=== PATIENT | female | born 1995 | race Caucasian/White ===

== ENCOUNTER 2020-07-06 18:31 | Inpatient (IN) | payer BC ==
[~2020-07-06] VITALS: Ht 157.5 cm; Wt 68.9 kg
[2020-07-06 18:48] VITALS: Ht 157.5 cm; Wt 68.9 kg
[2020-07-06 19:46] LABS: PLATELET COUNT 294 x10^3mcL (130-400)
[2020-07-06 19:47] LABS: BASOPHIL % 0 % (0-2)
[2020-07-06 19:59] LABS: ALKALINE PHOSPHATASE 53 U/L (46-116); ALT/SGPT 85 U/L (14-59); AST/SGOT 36 U/L (15-37); BILIRUBIN TOTAL 0.68 mg/dL (0.20-1.00); CALCIUM 9.2 mg/dL (8.5-10.1); CARBON DIOXIDE 26.7 mmol/L (21-32); CHLORIDE SERUM 96 mmol/L (98-107); CREATININE SERUM 0.5 mg/dL (0.6-1.0); GFR1 > 60 mL/min; GLUCOSE SERUM 92 mg/dL (74-106); LIPASE 109 IU/L (73-393); SODIUM SERUM 134 mmol/L (136-145); TOTAL PROTEIN, SERUM 7.5 g/dL (6.4-8.2)
[2020-07-06 20:00] LABS: ALBUMIN 3.1 g/dL (3.4-5.0)
[2020-07-06 20:01] LABS: POTASSIUM SERUM 2.9 mmol/L (3.5-5.1)
[2020-07-06 23:11] LABS: microscopic required? YES; urine erythrocyte 1+ (NEGATIVE)
[2020-07-07 03:21] VITALS: BP 122/68
[2020-07-07 05:43] VITALS: BP 115/66
[2020-07-07 07:11] LABS: BASOPHIL % 0.2 % (0-2); PLATELET COUNT 237 x10^3mcL (130-400); RED CELL DISTRIBUTION WIDTH 13.1 % (11.5-14.5)
[2020-07-07 07:30] LABS: CALCIUM 7.7 mg/dL (8.5-10.1); CARBON DIOXIDE 27.7 mmol/L (21-32); CHLORIDE SERUM 103 mmol/L (98-107); CREATININE SERUM 0.4 mg/dL (0.6-1.0); GFR1 > 60 mL/min; GLUCOSE SERUM 87 mg/dL (74-106); MAGNESIUM 1.9 mg/dL (1.8-2.4); POTASSIUM SERUM 3.1 mmol/L (3.5-5.1); SODIUM SERUM 137 mmol/L (136-145)
[2020-07-07 08:36] VITALS: BP 112/61
[2020-07-07 12:23] VITALS: BP 112/64
[2020-07-07 17:03] VITALS: BP 132/88
[2020-07-07 21:41] VITALS: BP 127/68
[2020-07-08 06:35] VITALS: BP 138/71
[2020-07-08 07:01] LABS: BASOPHIL % 0.3 % (0-2); PLATELET COUNT 270 x10^3mcL (130-400); RED CELL DISTRIBUTION WIDTH 12.8 % (11.5-14.5)
[2020-07-08 07:07] LABS: CALCIUM 9.1 mg/dL (8.5-10.1); CARBON DIOXIDE 24.7 mmol/L (21-32); CHLORIDE SERUM 100 mmol/L (98-107); CREATININE SERUM 0.5 mg/dL (0.6-1.0); GFR1 > 60 mL/min; GLUCOSE SERUM 90 mg/dL (74-106); MAGNESIUM 2.1 mg/dL (1.8-2.4); PHOSPHOROUS 2.7 mg/dL (2.5-4.9); POTASSIUM SERUM 3.4 mmol/L (3.5-5.1); SODIUM SERUM 136 mmol/L (136-145)
[2020-07-08 09:03] VITALS: BP 116/66
[2020-07-08] MEDS ORDERED: KEFLEX500 M1 PO (09:16)
[2020-07-08] MEDS ORDERED: VINATE M1 TAB PO (09:17)
[2020-07-08] MEDS ORDERED: VITAMIN B-650 M1 PO (09:17)
[2020-07-08] MEDS ORDERED: ZOF4 PO (09:25)
[2020-07-08 09:50] VITALS: BP 116/66
== END 2020-07-08 10:46 | disposition home or self-care (01) | DRG 178 ==
LOC: ED 18:31 → DU 22:35
PROVIDERS: Emergency Medicine; ADMIT Internal Medicine; ATTEND Internal Medicine
DX: U07.1 COVID-19 (principal); O98.511 Other viral diseases complicating pregnancy, first trimester; O23.41 Unspecified infection of urinary tract in pregnancy, first trimester; E44.1 Mild protein-calorie malnutrition; E87.6 Hypokalemia; O25.11 Malnutrition in pregnancy, first trimester; O21.0 Mild hyperemesis gravidarum; O99.281 Endocrine, nutritional and metabolic diseases complicating pregnancy, first trimester; Z3A.11 11 weeks gestation of pregnancy; Z68.26 Body mass index [BMI] 26.0-26.9, adult
CPT/HCPCS: G0378; J0696; J2270; J2405; J2765; J3010; J3480; J3490; J7030; J7060; U0003

== ENCOUNTER 2020-07-20 22:58 | Inpatient (IN) | payer BC ==
[~2020-07-20] VITALS: Ht 157.5 cm; Wt 65.4 kg
[~2020-07-20 22:58] MED LIST: KEFLEX500 M1 PO; VINATE M1 TAB PO; VITAMIN B-650 M1 PO; ZOF4 PO
[2020-07-20 23:03] VITALS: Ht 157.5 cm; Wt 65.4 kg
[2020-07-21 00:36] LABS: BASOPHIL % 0.4 % (0-2); PLATELET COUNT 272 x10^3mcL (130-400); RED CELL DISTRIBUTION WIDTH 12.9 % (11.5-14.5)
[2020-07-21 00:51] LABS: CALCIUM 9.7 mg/dL (8.5-10.1); CARBON DIOXIDE 22.1 mmol/L (21-32); CHLORIDE SERUM 102 mmol/L (98-107); CREATININE SERUM 0.8 mg/dL (0.6-1.0); GFR1 > 60 mL/min; GLUCOSE SERUM 136 mg/dL (74-106); POTASSIUM SERUM 3.5 mmol/L (3.5-5.1); SODIUM SERUM 140 mmol/L (136-145)
[2020-07-21 00:55] LABS: ALKALINE PHOSPHATASE 48 U/L (46-116); ALT/SGPT 35 U/L (14-59); AST/SGOT 22 U/L (15-37); BILIRUBIN TOTAL 0.46 mg/dL (0.20-1.00); LIPASE 77 IU/L (73-393)
[2020-07-21 01:00] LABS: ALBUMIN 3.2 g/dL (3.4-5.0)
[2020-07-21 05:07] VITALS: BP 131/55
[2020-07-21 05:09] LABS: UA SPECIFIC GRAVITY >=1.030 (1.005-1.035); microscopic required? YES; urine erythrocyte 3+ (NEGATIVE)
[2020-07-21 05:23] LABS: AMPHETAMINE QUAL UR NONE DETECTED (See below)
[2020-07-21 08:06] VITALS: BP 103/45
[2020-07-21 11:50] VITALS: BP 129/76
[2020-07-21 16:33] VITALS: BP 129/71
== END 2020-07-21 17:25 | disposition left against medical advice (07) | DRG 832 ==
LOC: ED 22:58 → MU 07-21 03:08
PROVIDERS: Emergency Medicine; ADMIT Family Medicine; ATTEND Family Medicine
DX: O21.0 Mild hyperemesis gravidarum (principal); O23.42 Unspecified infection of urinary tract in pregnancy, second trimester; E44.1 Mild protein-calorie malnutrition; Z53.29 Procedure and treatment not carried out because of patient's decision for other reasons; Z20.828 Contact with and (suspected) exposure to other viral communicable diseases; O9A.312 Physical abuse complicating pregnancy, second trimester; Z3A.14 14 weeks gestation of pregnancy; Z68.24 Body mass index [BMI] 24.0-24.9, adult
CPT/HCPCS: G0378; G0480; J2270; J2405; J2765; J3411; J7030

== ENCOUNTER 2020-08-04 18:05 | Emergency (ER) | payer BC ==
[~2020-08-04] VITALS: Ht 157.5 cm; Wt 63.5 kg
[2020-08-04 18:19] VITALS: BP 128/73; Ht 157.5 cm; Wt 63.5 kg
[2020-08-04 19:25] LABS: BASOPHIL % 0.2 % (0.2-1.3); PLATELET COUNT 299 x10^3mcL (179-408); RED CELL DISTRIBUTION WIDTH 12.7 % (12.3-17.7)
[2020-08-04 19:39] LABS: CALCIUM 9.5 mg/dL (8.5-10.1); CARBON DIOXIDE 23.1 mmol/L (21-32); CHLORIDE SERUM 101 mmol/L (98-107); CREATININE SERUM 0.7 mg/dL (0.6-1.0); GFR1 > 60 mL/min; GLUCOSE SERUM 137 mg/dL (74-106); POTASSIUM SERUM 3.4 mmol/L (3.5-5.1); SODIUM SERUM 139 mmol/L (136-145)
[2020-08-04 19:44] LABS: ALKALINE PHOSPHATASE 46 U/L (46-116); ALT/SGPT 30 U/L (14-59); AMYLASE 85 U/L (25-115); AST/SGOT 14 U/L (15-37); BILIRUBIN TOTAL 0.29 mg/dL (0.20-1.00); LIPASE 63 IU/L (73-393); TOTAL PROTEIN, SERUM 7.3 g/dL (6.4-8.2)
== END 2020-08-04 20:21 | disposition left against medical advice (07) ==
LOC: ED 18:05
PROVIDERS: Emergency Medicine
DX: O21.0 Mild hyperemesis gravidarum (principal); Z3A.13 13 weeks gestation of pregnancy; Z37.9 Outcome of delivery, unspecified
CPT/HCPCS: J1650; J2405; J2765; J3490; J7030

== ENCOUNTER 2020-08-23 13:32 | Emergency (ER) | payer BC ==
[~2020-08-23] VITALS: Ht 157.5 cm; Wt 63.0 kg
[2020-08-23 14:29] VITALS: BP 143/63; Ht 157.5 cm; Wt 63.0 kg
== END 2020-08-23 18:58 | disposition left against medical advice (07) ==
LOC: ED 13:32
DX: Z53.21 Procedure and treatment not carried out due to patient leaving prior to being seen by health care provider (principal)